=== PATIENT | female | born 1945 | race Caucasian/White ===

== ENCOUNTER → 2017-01-03 | Outpatient (CLI) | payer OTHER, MEDICARE | LOC: FIMAGING 09:53 | DX: Z12.31 Encounter for screening mammogram for malignant neoplasm of breast (principal) | CPT/HCPCS: G0202 ==

== ENCOUNTER → 2018-01-05 | Outpatient (CLI) | payer OTHER, MEDICARE | LOC: FIMAGING 13:05 | PROVIDERS: ATTEND Internal Medicine | DX: Z12.31 Encounter for screening mammogram for malignant neoplasm of breast (principal) ==

== ENCOUNTER → 2018-11-24 | Outpatient (CLI) | payer OTHER, MEDICARE | LOC: FIMAGING 15:25 | PROVIDERS: ATTEND Neurological Surgery | DX: M54.5 Low back pain (principal); M54.6 Pain in thoracic spine; M51.34 Other intervertebral disc degeneration, thoracic region; M40.204 Unspecified kyphosis, thoracic region; Z98.1 Arthrodesis status ==

== ENCOUNTER → 2018-12-17 | Day surgery (SDC) | payer OTHER, MEDICARE | END | disposition home or self-care (01) | LOC: FIMAGING 15:04 | PROVIDERS: ATTEND Neurological Surgery | DX: Z01.818 Encounter for other preprocedural examination (principal) | CPT/HCPCS: 36573; 76937; 77001; C1751 ==

== ENCOUNTER 2018-12-18 05:26 | Inpatient (IN) | payer OTHER, MEDICARE ==
[2018-12-18] MEDS ORDERED: ACETAMINOPHEN 500 MG TAB PO ONE (06:00)
[2018-12-18] MEDS ORDERED: GABAPENTIN 300 MG CAP PO ONE (06:00)
[2018-12-18] MEDS ORDERED: ceFAZolin 2 GM/DEXTROSE 100 ML IV ONE (06:00)
[2018-12-18] MEDS ORDERED: LR 1,000 ML IV ONE (06:01)
--- NOTE | 2018-12-18 06:12 | PDHPUP ---
History & Physical Update H&P update statement: This history and physical update is based on an assessment of the patient which was completed after admission or registration (within 24 hours), but prior to the surgery/procedure. H&P update: H&P reviewed & patient examined, no change in patient's condition since H&P completed
[2018-12-18] MEDS ORDERED: CHLORHEXIDINE GLUC HIBICLENS 118 ML BTL TP ONE (06:52)
[2018-12-18] MEDS ORDERED: BUPIVACAINE 0.25% 30 ML SDV ONE (06:52)
[2018-12-18] MEDS ORDERED: EPINEPHrine 1 MG/ML INJ ONE (06:53)
[2018-12-18] MEDS ORDERED: BACITRACIN 50,000 UNITS/10 ML SYR IRR ONE (06:53)
[2018-12-18] MEDS ORDERED: LIDOCAINE 1% 300 MG/30 ML SDV ONE (06:54)
[2018-12-18] MEDS ORDERED: MIDAZOLAM 2 MG/2 ML VIAL IVP ONE (06:55)
[2018-12-18] MEDS ORDERED: BUPIVACAINE 0.5% 30 ML SDV ONE (06:55)
--- NOTE | 2018-12-18 06:55 | PDANEPAE ---
ANE History of Present Illness back pain here for T12-L1 fusion ANE Past Medical History - Cardiovascular History Hx Hypertension: Yes Hx Arrhythmias: No Hx Chest Pain: No Hx Coronary Artery / Peripheral Vascular Disease: No Hx CHF / Valvular Disease: No Hx Palpitations: No Cardiovascular History Comment: TAMIKA MONITORS BP. - Pulmonary History Hx COPD: No Hx Asthma/Reactive Airway Disease: No Hx Recent Upper Respiratory Infection: No Hx Oxygen in Use at Home: Yes O2 in Use at Home (L/minute): 2 Hx Sleep Apnea: Yes Sleep Apnea Screening Result - Last Documented: Positive Pulmonary History Comment: LEISA POSITIVE USES DENTAL SPLINT AND O2 AT NOC - Neurologic History Hx Cerebrovascular Accident: No Hx Seizures: No Hx Dementia: No Neurologic History Comment: 3 SPINAL SURGERIES - Endocrine History Hx Diabetes: No Endocrine History Comment: HYPOTHYROIDISM. PRE- DIABETIC USES METFORMIN HAS LOST A LOT OF WEIGHT - Renal History Hx Renal Disorders: Yes Renal History Comment: HX OF BLADDER INFECTIONS - Liver History Hx Hepatic Disorders: No - Neurological & Psychiatric Hx Hx Neurological and Psychiatric Disorders: No - Cancer History Hx Cancer: Yes Cancer History Comment: BASAL CELL SKIN CA - Congenital Disorder History Hx Congenital Disorders: No - GI History Hx Gastrointestinal Disorders: Yes Gastrointestinal History Comment: REFLUX. CONSTIPATION - Other Health History Other Health History: NONE - Chronic Pain History Chronic Pain: Yes (BACK PAIN) - Surgical History Prior Surgeries: REMOVAL OF HARDWARE AND TLIF WITH DR SPAULDING 08/21/2012. APPY 1960. JULIANNA 1991. HYSTERECTOMY 1994. SPINAL FUSION 2003,2007,2012. . ANE Review of Systems Review of Systems: - Exercise capacity METS (RN): 4 METS ANE Patient History - Allergies Allergies/Adverse Reactions: codeine [Codeine] Allergy (Severe, Verified 08/18/12 16:28) PERISTALSIS SHUTS DOWN erythromycin base [Erythromycin Base] Allergy (Severe, Verified 08/18/12 16:28) PERISTALSIS SHUTS DOWN meperidine HCl [From Demerol] Allergy (Severe, Verified 08/18/12 16:28) Vomiting Sulfa (Sulfonamide Antibiotics) Allergy (Severe, Verified 08/18/12 16:28) HIVES ALL OVER BODY - Home Medications Home medications: home medication list seen and reviewed Home Medications: Aspirin [Aspirin 81mg (*)] 81 mg PO DAILY 08/03/14 [Last Taken 08/03/14] Chlorthalidone [Chlorthalidone 25 mg (*)] 25 mg PO DAILY 08/03/14 [Last Taken Unknown] Levothyroxine [Synthroid 75 mcg (*)] 75 mcg PO Q2D #0 08/03/14 [Last Taken Unknown] Liothyronine Sodium [Cytomel 5 mcg (*)] 5 mcg PO TID 08/03/14 [Last Taken Unknown] Nebivolol HCl [Bystolic 5 mg (*)] 2.5 mg PO HS 08/03/14 [Last Taken Unknown] Jefferson-3 Ethyl Est-Lovaza [Lovaza 1 gm (*)] 4 gm PO DAILY 08/03/14 [Last Taken Unknown] Omeprazole [Prilosec 20 mg] 20 mg PO BID 08/03/14 [Last Taken Unknown] Ramipril [Altace 5mg (*)] 5 mg PO DAILY 08/03/14 [Last Taken Unknown] metFORMIN HCL [Glucophage 500 mg (*)] 500 mg PO BIDMEAL 08/03/14 [Last Taken Unknown] Ezetimibe [Zetia 10 MG (*)] 10 mg PO DAILY 12/04/18 [Last Taken Unknown] Levothyroxine [Synthroid 125 mcg (*)] 125 mcg PO Q2D 12/04/18 [Last Taken Unknown] Methenamine Mandelate [METHENAMINE MANDELATE] 1 gm PO BID 12/04/18 [Last Taken Unknown] Milk of Magnesia PO HS 12/10/18 [Last Taken Unknown] - NPO status NPO Status: no food or drink >8 hours NPO Since - Liquids (Date): 12/17/18 NPO Since - Liquids (Time): 19:00 NPO Since - Solids (Date): 12/17/18 NPO Since - Solids (Time): 19:00 - Anes Hx Anes Hx: no prior problems - Smoking Hx Smoking Status: Never smoked - Alcohol Use Alcohol Use: Occasionally - Family Anes Hx Family Anes Hx: none Family Hx Anesthesia Complications: NONE ANE Labs/Vital Signs - Vital Signs Blood Pressure: 154/72 Heart Rate: 75 Respiratory Rate: 18 O2 Sat (%): 95 Height: 154.94 cm Weight: 95.254 kg ANE Physical Exam - Airway Neck exam: decreased ROM Mallampati Score: Class 3 Mouth exam: normal dental/mouth exam - Pulmonary Pulmonary: no respiratory distress, clear to auscultation - Cardiovascular Cardiovascular: regular rate and rhythym, no murmur, rub, or gallop - ASA Status ASA Status: III ANE Anesthesia Plan Anesthesia Plan: general endotracheal anesthesia Lines/Monitors: arterial line Total IV Anesthesia: Yes
[2018-12-18] MEDS ORDERED: PROPOFOL/EMULSION 500 MG/50 ML BOTTLE IV ONE ×3 (07:00→12:08)
[2018-12-18] MEDS ORDERED: PROPOFOL 200 MG/20 ML VIAL ONE (07:00)
[2018-12-18] MEDS ORDERED: REMIFENTANIL HCL 1 MG VIAL ONE ×3 (07:00→12:08)
[2018-12-18] MEDS ORDERED: fentaNYL 100 MCG/2 ML INJ ONE ×2 (07:00→13:54)
[2018-12-18] MEDS ORDERED: ROCURONIUM 100 MG/10 ML VIAL ONE (07:04)
[2018-12-18] MEDS ORDERED: MIDAZOLAM 2 MG/2 ML VIAL ONE (07:04)
[2018-12-18] MEDS ORDERED: ONDANSETRON DISINTEGRATING 4 MG TAB PO PRN (07:08)
[2018-12-18] MEDS ORDERED: HYDROmorphONE/DILAUDID 1 MG/ML INJ IVP PRN (07:08)
[2018-12-18] MEDS ORDERED: NALOXONE HCL 0.4 MG/ML INJ IVP PRN ×2 (07:08→12:22)
[2018-12-18] MEDS ORDERED: POLYETHYLENE GLYCOL 3350 17 GM PKT PO PRN (07:08)
[2018-12-18] MEDS ORDERED: diphenhydrAMINE 25 MG CAP PO PRN (07:08)
[2018-12-18] MEDS ORDERED: HYDROmorphONE/DILAUDID 6 MG/30 ML PCA IV PRN (07:08)
[2018-12-18] MEDS ORDERED: BISACODYL 10 MG SUPP PR PRN (07:08)
[2018-12-18] MEDS ORDERED: MAGNESIUM HYDROXIDE 30 ML UDCUP PO PRN (07:08)
[2018-12-18] MEDS ORDERED: HYDROCODONE/APAP 5/325 TAB PO PRN ×2 (07:08→12:22)
[2018-12-18] MEDS ORDERED: oxyCODONE IR 5 MG TAB PO PRN ×2 (07:08→12:22)
[2018-12-18] MEDS ORDERED: LACTULOSE 20 GM/30 ML UDCUP PO PRN (07:08)
[2018-12-18] MEDS ORDERED: ONDANSETRON 4 MG/2 ML VIAL IVP PRN ×2 (07:08→12:22)
[2018-12-18] MEDS ORDERED: THROMBIN (BOVINE) 20,000 UNIT VIAL TP ONE (07:47)
[2018-12-18] MEDS ORDERED: ONDANSETRON 4 MG/2 ML VIAL ONE (08:36)
[2018-12-18] MEDS ORDERED: DEXAMETHASONE 4 MG/ML VIAL ONE (08:36)
[2018-12-18] MEDS ORDERED: ceFAZolin 1 GM VIAL ONE (11:02)
[2018-12-18] MEDS ORDERED: PROMETHAZINE HCL 25 MG/ML INJ IVP PRN (12:22)
[2018-12-18] MEDS ORDERED: DIAZEPAM 5 MG/ML 1 ML SYR IVP PRN (12:22)
[2018-12-18] MEDS ORDERED: HYDROmorphONE/DILAUDID 2 MG/ML INJ IVP PRN (12:22)
[2018-12-18] MEDS ORDERED: ACETAMINOPHEN 500 MG TAB PO PRN (12:22)
[2018-12-18] MEDS ORDERED: fentaNYL 100 MCG/2 ML INJ IVP PRN (12:22)
[2018-12-18] MEDS ORDERED: HYDROmorphONE/DILAUDID 2 MG/ML INJ ONE ×2 (12:27→13:55)
--- NOTE | 2018-12-18 12:58 | POSTANESTH ---
Post Anesthetic Evaluation Cardiovascular Status: Normal, Stable, Similar to Pre-Op Cond Respiratory Status: Normal, Stable, Similar to Pre-op Cond. Level of Consciousness/Mental Status: Can Participate in Eval, Mildly Sleepy, Arousable Pain Control: Adequate, Prn Tx Ordered Nausea/Vomiting Control: Adequate, Prn Tx Ordered Complications Possibly Related to Anesthesia: None Noted
[2018-12-18] MEDS ORDERED: METHOCARBAMOL 750 MG TAB ONE (13:30)
[2018-12-18] MEDS: METHOCARBAMOL 750 MG TAB PO PRN ×2 (13:31→20:55)
--- NOTE | 2018-12-18 13:54 | POSTOPPROG ---
Post Op Note Date of Operation: 12/18/18 Surgeon: Zahida Kc Aircraft Restorer: SHYAM Rhoades Anesthesiologist: MD Inez Anesthesia: GET(General Endotracheal), Local (Specify) Pre-op Diagnosis: T-L stenosis Post-op Diagnosis: T-L stenosis Indication: LLE pain, LBP, MRI showing severe stenosis Procedure: T10-L2 with tie into prior hardware, T11/12 and T12/L1 TLIF Findings: see op report Inf/Abcess present in the surg proc area at time of surgery?: No Depth: Deep Incisional (Fascial) EBL: 100-500 Total fluids administered: see anesthesia record Complications: none Drains: Edenilson Bae
--- NOTE | 2018-12-18 14:01 | SOAPPROG ---
SOAP Progress Note Assessment/Plan: Post Op Visit: S: Awake and alert. NAD. Pt with expected T-L pain O: AFVSS/PERRLA/EOMI no droop CN 2-12 grossly intact +lt touch 5/5 BUE/BLE = CDI CITLALI in place A/P: 73 yo female that is s/p TLIF T11/T12 and L1/2 with PSF T10-L3 with tie into fusion to S1 -orders in place -call with any questions or concerns -pt understands and agrees -pt seen by Dr Kc as well -PT/OT pending Objective: Vital Signs Temp Pulse Resp BP Pulse Ox 36.3 C 75 11 L 124/63 H 96 12/18/18 13:48 12/18/18 06:54 12/18/18 13:48 12/18/18 13:48 12/18/18 13:48 ICD10 Worksheet Patient Problems: Problems Problem Status Onset Lumbar radicular pain Acute Lumbar stenosis Acute - ICD10 Problem Qualifiers (1) Lumbar radicular pain
[2018-12-18] MEDS ORDERED: ACETAMINOPHEN 500 MG TAB ONE (14:03)
[2018-12-18] MEDS: ACETAMINOPHEN 500 MG TAB PO SCH ×2 (14:49→20:49)
[2018-12-18] MEDS: NS 1,000 ML IV SCH (14:50)
[2018-12-18] MEDS: GABAPENTIN 300 MG CAP PO SCH ×2 (14:50→20:52)
--- NOTE | 2018-12-18 15:35 | PDMN ---
Medical Necessity Medical necessity: [facility] IP only surgery; cpt 80891 Lumbar Fusion (T10-L3 fusion , T11-L1 TLIF)
[2018-12-18] MEDS ORDERED: DEXMEDETOMIDINE HCL 400 MCG in NS 100 ML IV SCH (16:00)
--- NOTE | 2018-12-18 16:04 | GOP ---
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 PROCEDURE PERFORMED: Removal of posterior nonsegmental hardware at the L1 level and rods between L1 and L2, a posterolateral intervertebral arthrodesis, transforaminal lumbar interbody fusion at T12-L1 (37762); thoracic T11-T12 transpedicular diskectomy (54877); posterolateral arthrodesis at T10-11 ([phone]); placement of biomechanical intervertebral device, T11-12, T12-L1; same incision bone graft jerry vest; microscope; posterior segmental instrumentation, T10, T11, T12 with connectors between T12 and L2. FINDINGS: INDICATIONS: The patient is a middle-aged woman with a prior history of numerous spinal surgeries th at had all previously been successful with a fusion from L1 to S1, who developed increasingly severe back pain and radiating pain, worse on the left than on the right. An MRI demonstrated severe stenos is above the prior fusion at T12-L1, where there was terrible disk degenerative disease. She also gonzáles d a left-sided T11-12 disk protrusion, creating mass effect on the lateral aspect of the thecal sac a t that level. There was no significant compressive lesion at T10. I suggested extending her fusion across the thoracolumbar junction up to the T10 level with decompressions at T11-12 and T12-L1 with a n intervertebral arthrodesis at T12-L1 as well as T11-12. We would continue the posterolateral fusio n at the T10 level because of biomechanical concerns crossing the thoracolumbar junction, risk of pse udoarthrosis, adjacent segment disease, and possible need for additional spine surgery in the future above this fusion which would effective ago from T10 to the sacrum was discussed. She understood thi s was a possibility. She knew there was risk of paraplegia from surgery in the thoracic spine. She knew there was risk of spinal fluid leak, screw and hardware malposition and malfunction, and she wan sekou to proceed despite the known risks. DESCRIPTION OF PROCEDURE: The patient was taken to the operating room, placed in supine position. G eneral anesthesia was begun. An arterial line was placed. A PICC had been placed preoperatively. S he was flipped prone onto the Edenilson table. Care was taken to pad all points of contact. She had a history of surgical left shoulder and a frozen left shoulder as well as, I believe, humerus surgery with a fragile humerus. We attempted to keep her arm relatively anatomic and put it up in a normal f ashion, but I was not happy with this. I did not think that it would stay in this position, and so w e did reduce the arm and leave it at her side throughout the surgery. We monitored motors and somato sensory evoked potentials throughout surgery, and the median and ulnar nerves remained fully viable t hroughout the surgery. She was sterilely prepped and draped in usual fashion. A localizing x-ray wa s taken. We opened the prior incision, exposing the rostral portion of her construct at L1 and L2. We extended this all the way up to the T9 level and exposed the T10 transverse processes. We removed the T10, 11, 12 transverse processes, removed the scar off the prior screws at L1 and L2. We remove d the cap screws at L1. We then cut the rods just below the L1 tulip on each side. We removed the L 1 screws bilaterally. They were solidly anchored in bone. There was no evidence of pseudoarthrosis. We left these screws out. We denuded the facet joints bilaterally to clear arthrodesis at T10-11, T11-12, T12-L1. We then attached a reference frame and performed an O-arm spin and, using frameless still stereotactics, we placed pedicle screws bilaterally at T10, T11, and T12. An O-arm spin was gabe lee. All the screws were in excellent position. They all stimulated at 20 milliamps or greater. We did use 5.5 mm screws at T12. We used 6.5 mm screws elsewhere except on the right at T10, where we u sed a 5.5 mm screw. We took a jesu and placed it down over the right side of the construct, distracte d from T10 to T11, T11 to T12 and T12 to L1 unilaterally. We removed the left T12 screw that had bee n placed. We then harvested the T12 and T11 spinous processes and then used this for autologous bone graft. Under the microscope, we drilled bilateral laminectomies at T12-L1 with complete removal of the T12 lamina. We decompressed the right lateral aspect of the canal, but preserved the right T12-L 1 facet joint. We got a great decompression on the right-hand side. We came to the left, where we r emoved the left T12-L1 facet joint, identified the exiting T12 nerve root, and we did likewise at T11 -12, where we decompressed the central thecal sac and the left side of the canal at that level. We d id not perform a radical right-sided decompression at T11-12. We then drilled the very rostral pedic le of T11 out on the left-hand side to access the intervertebral space and disk, and indeed there was prolapsed disk material in the spinal canal at that level. From this somewhat lateral transfacet an d transpedicular approach, we were able to identify the disk herniation underneath the spinal cord, b ut it was not a soft disk. It was not easily removed. We did not retract the dura. We did thorough ly decompress the left side of the canal. We then incised the T11-12 disk and removed the disk and t he cartilaginous endplates. After doing so and coring out the area underneath the annulus of the dis k centrally, we tried to reduce the disk down into the disk space, and it remained hard and really im mobile. We had a great decompression. I did not belabor this effort. At the T12-L1 level, we did l ikewise from a left-sided approach. I drilled only the rostral portion of the pedicle to allow acces s to the T12-L1 disk. We identified the T12 exiting nerve root. It was preserved. We incised the T 12-L1 disk, removed the disk and the cartilaginous endplates. We then placed BMP and bone into the d isk at T12-L1 and T11-12 and then sized each and chose a 6 x 22 mm Capstone device. This was the sma llest device that I could utilize and I felt comfortable using it in the thoracic spine. It was pack ed with bone morphogenic protein, and it was inserted at both of those levels and positioned fluorosc opically. Both devices were in excellent position. I was happy with them. We decorticated all shin ining posterolateral bone bilaterally from T10 all the way down to L1. We then took a jesu, cut it to size for the patient's left-hand side. We had to trim the right-side jesu; it was still slightly memo g, and we did this. We placed the rods into the tulips, connected them with the connector to the old jesu, which was a 4.75 system. This was a 5.5 mm system. We connected it to the rods and distracted only slightly between the T11-12 and T12-L1. The final x-ray was taken. I was very happy with all of the hardware that was present. We then decorticated all the remaining posterolateral bone bilater ally and placed BMP and bone autograft posterolaterally bilaterally, followed by a subfascial drain. We then closed the incision in multiple layers using Vicryl suture. Steri-Strips were applied to th e skin. The patient tolerated the procedure well, and she was extubated and transferred to recovery room in stable condition. COMPLICATIONS: None. /[id number]/MODL
[2018-12-18] MEDS: EZETIMIBE 10 MG TAB PO SCH (16:38)
[2018-12-18] MEDS: LEVOTHYROXINE 125 MCG TAB PO SCH (16:38)
[2018-12-18] MEDS: FAMOTIDINE 20 MG TAB PO SCH ×2 (16:38→19:56)
[2018-12-18] MEDS: CHLORTHALIDONE 25 MG TAB PO SCH (16:38)
[2018-12-18] MEDS: LIOTHYRONINE SODIUM 5 MCG TAB PO SCH ×3 (16:39→20:58)
[2018-12-18] MEDS: OMEGA-3 ETHYL EST-LOVAZA 1 GM CAP PO SCH (16:39)
[2018-12-18] MEDS: LEVOTHYROXINE 75 MCG TAB PO SCH (16:39)
[2018-12-18] MEDS: SENNOSIDES/DOCUSATE SODIUM TAB PO SCH ×2 (16:39→20:01)
[2018-12-18] MEDS: PANTOPRAZOLE SODIUM 40 MG TAB PO SCH ×2 (16:39→19:56)
[2018-12-18] MEDS: RAMIPRIL 5 MG CAP PO SCH (16:39)
[2018-12-18] MEDS: ceFAZolin 2 GM/DEXTROSE 100 ML IV SCH (18:40)
--- NOTE | 2018-12-18 18:51 | SOAPPROG ---
ZOHAIB Progress Note Assessment/Plan: Assessment: Plan: 12/18/18 18:49 s/p extension of L-spine fusion to lower thoracic spine. Currently doing quite well. More alert at this point. Will tailor meds to pain as needed. Added tramadol to the list of options as needed per patient request. Will follow. Subjective: s/p back surgery with extension of fusion today. Quite zonked by Precedex, but more alert now. Pain not much of an issue yet. Historically she has needed narcotics for a few days, but prefers tramadol for pain control. Dtr Irene present. Patient without complaints yet, but still groggy. Objective: Vital Signs Temp Pulse Resp BP Pulse Ox 37.1 C 73 14 123/64 H 97 12/18/18 14:30 12/18/18 14:30 12/18/18 14:30 12/18/18 14:30 12/18/18 14:30 12/17/18 12/18/18 12/19/18 05:59 05:59 05:59 Intake Total 1783 Output Total 920 Balance 863 Gen: sedated, arouses to light touch and louder voice. Neuro: she grows steadily brighter with conversation Lungs: CTAB on PAP Heart: RRR distant Spine: no examined LE's: MARIE's and SCD's ICD10 Worksheet Patient Problems: Problems Problem Status Onset Lumbar radicular pain Acute Lumbar stenosis Acute
[2018-12-18] MEDS: METHENAMINE HIPP 1 GM TAB PO SCH (19:56)
[2018-12-18] MEDS: NEBIVOLOL HCL 5 MG TAB PO SCH (19:56)
[2018-12-18] MEDS: traMADol 50 MG TAB PO PRN (19:58)
[2018-12-18] MEDS: MAGNESIUM HYDROXIDE 30 ML UDCUP PO SCH ×2 (20:02→20:55)
[2018-12-18] MEDS: DOCUSATE SODIUM 100 MG CAP PO SCH (20:52)
[2018-12-19] MEDS: ceFAZolin 2 GM/DEXTROSE 100 ML IV SCH (00:29)
[2018-12-19] MEDS: NS 1,000 ML IV SCH (05:09)
[2018-12-19] MEDS: ACETAMINOPHEN 500 MG TAB PO SCH ×3 (05:21→22:37)
[2018-12-19] MEDS: traMADol 50 MG TAB PO PRN ×2 (05:21→20:32)
[2018-12-19] MEDS: GABAPENTIN 300 MG CAP PO SCH ×3 (05:21→22:37)
[2018-12-19 05:24] LABS: PLATELET COUNT 179 10^3/uL (150-400)
[2018-12-19] MEDS: METHOCARBAMOL 750 MG TAB PO PRN ×2 (05:58→15:49)
[2018-12-19] MEDS ORDERED: traMADol 50 MG TAB PO PRN (08:00)
--- NOTE | 2018-12-19 08:04 | NEUSURGPN ---
Assessment/Plan: A/P: 73 yo female that is s/p TLIF T11/T12 and L1/2 with PSF T10-L3 with tie into fusion to S1 POD1 -Optimize pain management, Tramadol increased -post op xrays pending -CITLALI x1 may d/c later today -PT/OT -DVT prophx: TEDs, SCDs, Lovenox okay -Discussed with Dr. Kc -Please notify NS with any change in neuro/motor exam Subjective: low back pain, denies any leg pain, numbness, tingling or weakness Objective: NAD A&Ox3 MAEx4 5/ and equal in BUE and BLE. CITLALI drain serosanginous Incision c/ d/i Catheter Insertion Date: 12/18/18 - Physician Discussed Patient with : De Neurosurgery Physical Exam - Vitals, I&O, Labs I and O 12/18/18 12/19/18 12/20/18 05:59 05:59 05:59 Intake Total 4207 Output Total 1630 Balance 2577 Weight 95.254 kg Intake: Oral (ml) 1600 IV Intake (ml) 1400 IV Infused (ml) 1207 Dexmedetomidine HCl 400 17 mcg In Ns 100 ml @ Per Protocol IV CONT ZONIA Rx#: [id number] Ns 1,000 ml @ 75 mls/hr 990 IV CONT ZONIA Rx#: [id number] ceFAZolin 2 GM/DEXTROSE 200 100 ml @ 200 mls/hr IV Q8H ZONIA Rx#:[id number] Output: Urine (ml) 1000 Catheter 1000 Estimated Blood Loss (ml) 400 CITLALI Drain Output (ml) 230 Back Edenilson Bae 230 Other: Intake Quantity Yes Sufficient Vital Signs Temp Pulse Resp BP Pulse Ox 37.1 C 63 10 L 124/58 H 91 L 12/19/18 07:55 12/19/18 07:55 12/19/18 07:55 12/19/18 07:55 12/19/18 07:55 Laboratory Results 12/19/18 05:10 12/19/18 05:10 ICD10 Worksheet Patient Problems: Problems Problem Status Onset Lumbar radicular pain Acute Lumbar stenosis Acute
[2018-12-19] MEDS: FAMOTIDINE 20 MG TAB PO SCH ×2 (08:30→20:29)
[2018-12-19] MEDS: OMEGA-3 ETHYL EST-LOVAZA 1 GM CAP PO SCH (08:30)
[2018-12-19] MEDS: LIOTHYRONINE SODIUM 5 MCG TAB PO SCH ×3 (08:31→16:57)
[2018-12-19] MEDS: RAMIPRIL 5 MG CAP PO SCH (08:31)
[2018-12-19] MEDS: PANTOPRAZOLE SODIUM 40 MG TAB PO SCH ×2 (08:31→20:29)
[2018-12-19] MEDS: CHLORTHALIDONE 25 MG TAB PO SCH (08:31)
[2018-12-19] MEDS: METHENAMINE HIPP 1 GM TAB PO SCH ×2 (08:31→20:28)
[2018-12-19] MEDS: metFORMIN HCL 500 MG TAB PO SCH ×2 (08:31→16:53)
[2018-12-19] MEDS: EZETIMIBE 10 MG TAB PO SCH (08:31)
[2018-12-19] MEDS ORDERED: MAGNESIUM HYDROXIDE 30 ML UDCUP PO PRN (10:16)
--- NOTE | 2018-12-19 10:21 | SOAPPROG ---
ZOHAIB Progress Note Assessment/Plan: Assessment: Plan: 12/18/18 18:49 s/p extension of L-spine fusion to lower thoracic spine. Currently doing quite well. More alert at this point. Will tailor meds to pain as needed. Added tramadol to the list of options as needed per patient request. Will follow. 12/19/18 10:19 constipation--historic challenge. Will place order for 4 MOM tablets q6 hours prn. She has her own unopened supply and taking this is her preference. L-T spine surgery--looking great. Encourage use of IS pain management--she prefers tramadol and seems to be doing quite well with it low Na+--eating now, will recheck tomorrow Subjective: The pain is really doing well. She has walked, she has had xrays, she has had food and beverage and is feeling well. Objective: Vital Signs Temp Pulse Resp BP Pulse Ox 37.1 C 63 10 L 124/58 H 91 L 12/19/18 07:55 12/19/18 07:55 12/19/18 07:55 12/19/18 07:55 12/19/18 07:55 Laboratory Results 12/19/18 05:10 12/19/18 05:10 12/18/18 12/19/18 12/20/18 05:59 05:59 05:59 Intake Total 4207 Output Total 1630 Balance 2577 Gen: NAD, clear, pleasant Lungs: CTAB Heart: RRR Abd : + bs ,soft LE's easy movement Na+ 129 ICD10 Worksheet Patient Problems: Problems Problem Status Onset Lumbar radicular pain Acute Lumbar stenosis Acute
--- NOTE | 2018-12-19 15:19 | ASMTCMCOM ---
CM Note CM Note Notes: Pt had planned surgery, resides alone. OT rec home, PT rec home/HHC. Pt was pre-arranged with [facility] by MD office. Pt to have someone stay with her during her recovery for two weeks. CM to follow. D/c plan of care: Home with HHC Date Signed: 12/19/2018 03:19 PM Electronically Signed By:LOURDES Hester
[2018-12-19] MEDS: DOCUSATE SODIUM 100 MG CAP PO SCH (20:28)
[2018-12-19] MEDS ORDERED: LIOTHYRONINE SODIUM 5 MCG TAB PO ONE (21:00)
[2018-12-19] MEDS: NEBIVOLOL HCL 5 MG TAB PO SCH (22:37)
[2018-12-19] MEDS: [UNRECOGNIZED DRUG - OTHER] PO PRN (22:40)
[2018-12-19] MEDS: MAGNESIUM OXIDE 500 MG PO PRN (22:40)
[2018-12-20] MEDS: traMADol 50 MG TAB PO PRN ×6 (00:17→19:54)
[2018-12-20] MEDS ORDERED: POTASSIUM CL 20 MEQ TAB PO ONE (06:48)
[2018-12-20] MEDS: ACETAMINOPHEN 500 MG TAB PO SCH ×3 (06:54→22:42)
[2018-12-20] MEDS: GABAPENTIN 300 MG CAP PO SCH ×3 (06:54→22:42)
[2018-12-20] MEDS ORDERED: NS W/ 20 KCl/L 1,000 ML IV SCH (07:00)
[2018-12-20] MEDS: LIOTHYRONINE SODIUM 5 MCG TAB PO SCH ×3 (07:33→16:38)
--- NOTE | 2018-12-20 08:12 | NEUSURGPN ---
Assessment/Plan: A/P: 73 yo female that is s/p TLIF T11/T12 and L1/2 with PSF T10-L3 with tie into fusion to S1 POD1 -Optimize pain management, Tramadol increased -post op xrays pending -CITLALI x1 may d/c later today -PT/OT -DVT prophx: TEDs, SCDs, Lovenox okay -Hyponatremia- Patient is drinking a lot of free water, recommended switching to electrolyte rich fluids -Discussed with Dr. Kc -Please notify NS with any change in neuro/motor exam Subjective: low back pain better with medication changes Objective: NAD A&Ox3 MAEx4 5/ and equal in BUE and BLE. CITLALI drain serosanguineous Incision c/d/i Catheter Insertion Date: 12/18/18 - Physician Discussed Patient with : De Neurosurgery Physical Exam - Vitals, I&O, Labs I and O 12/19/18 12/20/18 12/21/18 05:59 05:59 05:59 Intake Total 4207 Output Total 1630 75 Balance 2577 -75 Weight 95.254 kg Intake: Oral (ml) 1600 IV Intake (ml) 1400 IV Infused (ml) 1207 Dexmedetomidine HCl 400 17 mcg In Ns 100 ml @ Per Protocol IV CONT ZONIA Rx#: [id number] Ns 1,000 ml @ 75 mls/hr 990 IV CONT ZONIA Rx#: [id number] ceFAZolin 2 GM/DEXTROSE 200 100 ml @ 200 mls/hr IV Q8H ZONIA Rx#:[id number] Output: Urine (ml) 1000 Catheter 1000 Estimated Blood Loss (ml) 400 CITLALI Drain Output (ml) 230 75 Back Edenilson Bae 230 75 Other: Intake Quantity Yes Yes Sufficient Vital Signs Temp Pulse Resp BP Pulse Ox 37.0 C 63 18 107/70 88 L 12/20/18 07:51 12/20/18 07:51 12/20/18 07:51 12/20/18 07:51 12/20/18 07:51 Laboratory Results 12/19/18 05:10 12/20/18 04:30 ICD10 Worksheet Patient Problems: Problems Problem Status Onset Lumbar radicular pain Acute Lumbar stenosis Acute
[2018-12-20] MEDS: metFORMIN HCL 500 MG TAB PO SCH ×2 (08:31→17:37)
[2018-12-20] MEDS: FAMOTIDINE 20 MG TAB PO SCH ×2 (08:31→19:54)
[2018-12-20] MEDS: PANTOPRAZOLE SODIUM 40 MG TAB PO SCH ×2 (08:32→19:53)
[2018-12-20] MEDS: EZETIMIBE 10 MG TAB PO SCH (08:32)
[2018-12-20] MEDS: METHENAMINE HIPP 1 GM TAB PO SCH ×2 (08:32→19:53)
[2018-12-20] MEDS: CHLORTHALIDONE 25 MG TAB PO SCH (08:37)
[2018-12-20] MEDS: LEVOTHYROXINE 75 MCG TAB PO SCH (08:41)
[2018-12-20] MEDS: LEVOTHYROXINE 125 MCG TAB PO SCH (10:20)
--- NOTE | 2018-12-20 10:53 | SOAPPROG ---
ZOHAIB Progress Note Assessment/Plan: Assessment: Plan: 12/18/18 18:49 s/p extension of L-spine fusion to lower thoracic spine. Currently doing quite well. More alert at this point. Will tailor meds to pain as needed. Added tramadol to the list of options as needed per patient request. Will follow. 12/19/18 10:19 constipation--historic challenge. Will place order for 4 MOM tablets q6 hours prn. She has her own unopened supply and taking this is her preference. L-T spine surgery--looking great. Encourage use of IS pain management--she prefers tramadol and seems to be doing quite well with it low Na+--eating now, will recheck tomorrow 12/20/18 10:51 hyponatremia--d/w patient related to chlorthalidone, tramadol and surgical stress. Will d/c chlorthalidone today. Will give gentle fluids x 1 liter. Patient avoiding free water. Recheck in am low K+--replaced with po dose this am--recheck in am constipation--bowel plan in place spinal surgery--recovering quite well otherwise Subjective: Marielos is feeling pretty good. Pain control improved with q3 hour tramadol. She did have some transient tingling in her fingers. She is learning about low sodium. No BM since , but feels rumblings in her stomach. Appetite is good. Thirst is good. Walking is going quite well. Objective: Vital Signs Temp Pulse Resp BP Pulse Ox 37.0 C 63 18 110/60 88 L 12/20/18 07:51 12/20/18 07:51 12/20/18 07:51 12/20/18 08:37 12/20/18 07:51 Laboratory Results 12/19/18 05:10 12/20/18 04:30 12/19/18 12/20/18 12/21/18 05:59 05:59 05:59 Intake Total 4207 Output Total 1630 75 Balance 2577 -75 Gen: NAD Lungs: CTAB Heart: RRR Abd + bs soft LE's without edema Na+ 126 k+ 2.9 ICD10 Worksheet Patient Problems: Problems Problem Status Onset Lumbar radicular pain Acute Lumbar stenosis Acute
[2018-12-20] MEDS: METHOCARBAMOL 750 MG TAB PO PRN ×2 (11:17→19:54)
[2018-12-20] MEDS: OMEGA-3 ETHYL EST-LOVAZA 1 GM CAP PO SCH (11:20)
[2018-12-20] MEDS: RAMIPRIL 5 MG CAP PO SCH (11:23)
[2018-12-20] MEDS: NEBIVOLOL HCL 5 MG TAB PO SCH (19:55)
[2018-12-20] MEDS: MAGNESIUM OXIDE 500 MG PO PRN (19:58)
[2018-12-20] MEDS: [UNRECOGNIZED DRUG - OTHER] PO PRN (19:58)
[2018-12-20] MEDS: MAGNESIUM HYDROXIDE 30 ML UDCUP PO SCH (23:09)
[2018-12-20] MEDS: DOCUSATE SODIUM 100 MG CAP PO SCH (23:09)
[2018-12-21] MEDS: traMADol 50 MG TAB PO PRN ×6 (00:54→20:44)
[2018-12-21] MEDS: ACETAMINOPHEN 500 MG TAB PO SCH ×3 (06:47→23:53)
[2018-12-21] MEDS: LIOTHYRONINE SODIUM 5 MCG TAB PO SCH ×3 (06:47→17:21)
[2018-12-21] MEDS: GABAPENTIN 300 MG CAP PO SCH ×3 (06:47→22:00)
--- NOTE | 2018-12-21 07:57 | NEUSURGPN ---
Date of Surgery: 12/18/18 Post Op Day: 3 Assessment/Plan: Assessment: 73 yo female that is s/p TLIF T11/T12 and L1/2 with PSF T10-L3 with tie into fusion to S1 POD #3 Plan: -Optimize pain management, Tramadol increased -post op xrays look good -CITLALI removed -CDI -PT/OT-CPM -DVT prophx: TEDs, SCDs, Lovenox okay -Hyponatremia- Patient was drinking a lot of free water. Fluid restricted now. Na 129 today. K 3.5 -defer to Dr Gotti for management of Na/K -Discussed/seen with Dr. Kc -Please notify NS with any change in neuro/motor exam Subjective: Awake and alert. NAD. Eating/drinking and voiding. No f/c/n/v/d Objective: Awake and alert. NAD. Eating/drinking and voiding PERRLA/EOMI CN 2-12 grossly intact 5/5 BUE/BLE = CDI Neuro Check Frequency: per routine Urinary Catheter in Place: No Catheter Insertion Date: 12/18/18 - Physician Discussed Patient with : De Patient Seen by : De Neurosurgery Physical Exam - Vitals, I&O, Labs I and O 12/20/18 12/21/18 12/22/18 05:59 05:59 05:59 Output Total 75 75 Balance -75 -75 Output: CITLALI Drain Output (ml) 75 75 Back Edenilson Bae 75 75 Other: Intake Quantity Yes Yes Sufficient Vital Signs Temp Pulse Resp BP Pulse Ox 36.8 C 64 14 163/87 H 97 12/21/18 07:49 12/21/18 07:49 12/21/18 07:49 12/21/18 07:49 12/21/18 07:49 Laboratory Results 12/19/18 05:10 12/21/18 05:00 ICD10 Worksheet Patient Problems: Problems Problem Status Onset Lumbar radicular pain Acute Lumbar stenosis Acute - ICD10 Problem Qualifiers (1) Lumbar radicular pain
[2018-12-21] MEDS: RAMIPRIL 5 MG CAP PO SCH (08:22)
[2018-12-21] MEDS: EZETIMIBE 10 MG TAB PO SCH (08:23)
[2018-12-21] MEDS: PANTOPRAZOLE SODIUM 40 MG TAB PO SCH ×2 (08:23→20:47)
[2018-12-21] MEDS: LEVOTHYROXINE 125 MCG TAB PO SCH (08:23)
[2018-12-21] MEDS: FAMOTIDINE 20 MG TAB PO SCH ×2 (08:23→20:47)
[2018-12-21] MEDS: METHENAMINE HIPP 1 GM TAB PO SCH ×2 (08:24→20:44)
[2018-12-21] MEDS: metFORMIN HCL 500 MG TAB PO SCH ×2 (08:24→17:21)
[2018-12-21] MEDS: OMEGA-3 ETHYL EST-LOVAZA 1 GM CAP PO SCH (08:25)
--- NOTE | 2018-12-21 09:21 | SOAPPROG ---
ZOHAIB Progress Note Assessment/Plan: Assessment: Plan: 12/18/18 18:49 s/p extension of L-spine fusion to lower thoracic spine. Currently doing quite well. More alert at this point. Will tailor meds to pain as needed. Added tramadol to the list of options as needed per patient request. Will follow. 12/19/18 10:19 constipation--historic challenge. Will place order for 4 MOM tablets q6 hours prn. She has her own unopened supply and taking this is her preference. L-T spine surgery--looking great. Encourage use of IS pain management--she prefers tramadol and seems to be doing quite well with it low Na+--eating now, will recheck tomorrow 12/20/18 10:51 hyponatremia--d/w patient related to chlorthalidone, tramadol and surgical stress. Will d/c chlorthalidone today. Will give gentle fluids x 1 liter. Patient avoiding free water. Recheck in am low K+--replaced with po dose this am--recheck in am constipation--bowel plan in place spinal surgery--recovering quite well otherwise 12/21/18 09:19 hyponatremia--improved. Will stay off chlorthalidone for now htn repeat value ok. Plenty of room to increase bystolic or ramipril if needed low K+ improving post op course--quite successful! Subjective: Marielos is doing well. Bright, walking well. Feels a bit over salted. + BM Objective: Vital Signs Temp Pulse Resp BP Pulse Ox 36.8 C 64 14 163/87 H 97 12/21/18 07:49 12/21/18 07:49 12/21/18 07:49 12/21/18 08:22 12/21/18 07:49 Laboratory Results 12/19/18 05:10 12/21/18 05:00 12/20/18 12/21/18 12/22/18 05:59 05:59 05:59 Output Total 75 75 Balance -75 -75 GEN: NAD Lungs: CTAB Heart: RRR repeat in room BP 127/63 ABD: + bs soft LE's in SCD's Na+ 129 K+ 3.5 ICD10 Worksheet Patient Problems: Problems Problem Status Onset Lumbar radicular pain Acute Lumbar stenosis Acute
[2018-12-21] MEDS: METHOCARBAMOL 750 MG TAB PO PRN (10:33)
[2018-12-21] MEDS: ENOXAPARIN 40 MG/0.4 ML SYR SC SCH (10:49)
--- NOTE | 2018-12-21 12:08 | ASMTCMCOM ---
CM Note CM Note Notes: Lizzy with [facility] on site today to check-in on patient. [facility] CM will follow for any further needs. Plan: [facility] PT Date Signed: 12/21/2018 12:07 PM Electronically Signed By:Alona Wang RN
[2018-12-21] MEDS: MAGNESIUM OXIDE 500 MG PO PRN (20:46)
[2018-12-21] MEDS: [UNRECOGNIZED DRUG - OTHER] PO PRN (20:46)
[2018-12-21] MEDS: NEBIVOLOL HCL 5 MG TAB PO SCH (20:47)
[2018-12-21] MEDS: MAGNESIUM HYDROXIDE 30 ML UDCUP PO SCH (22:11)
[2018-12-21] MEDS: DOCUSATE SODIUM 100 MG CAP PO SCH (22:11)
[2018-12-22] MEDS: traMADol 50 MG TAB PO PRN ×3 (00:32→08:58)
[2018-12-22] MEDS: LIOTHYRONINE SODIUM 5 MCG TAB PO SCH (05:16)
[2018-12-22] MEDS: GABAPENTIN 300 MG CAP PO SCH (05:16)
[2018-12-22] MEDS: ACETAMINOPHEN 500 MG TAB PO SCH (05:16)
[2018-12-22] MEDS: OMEGA-3 ETHYL EST-LOVAZA 1 GM CAP PO SCH (08:50)
[2018-12-22] MEDS: FAMOTIDINE 20 MG TAB PO SCH (08:52)
[2018-12-22] MEDS: EZETIMIBE 10 MG TAB PO SCH (08:52)
[2018-12-22] MEDS: METHENAMINE HIPP 1 GM TAB PO SCH (08:52)
[2018-12-22] MEDS: LEVOTHYROXINE 125 MCG TAB PO SCH (08:53)
[2018-12-22] MEDS: metFORMIN HCL 500 MG TAB PO SCH (08:54)
[2018-12-22] MEDS: RAMIPRIL 5 MG CAP PO SCH (08:54)
[2018-12-22] MEDS: ENOXAPARIN 40 MG/0.4 ML SYR SC SCH (08:54)
[2018-12-22] MEDS: PANTOPRAZOLE SODIUM 40 MG TAB PO SCH (08:58)
[2018-12-22 08:59] VITALS: BP 124/100
--- NOTE | 2018-12-22 09:29 | NEUSURGPN ---
Assessment/Plan: Assessment: 73 yo female that is s/p TLIF T11/T12 and L1/2 with PSF T10-L3 with tie into fusion to S1 POD #4 Plan: -Optimize pain management -post op xrays look good -PT/OT-CPM -DVT prophx: TEDs, SCDs, Lovenox okay -Hyponatremia-stable at 129 this am. Discussed continuing with electrolyte rich fluids. Follow up with Dr. Gotti's office in 1 week to follow up with sodium -defer to Dr Gotti for management of Na/K -Discussed with Dr. Kc -Please notify NS with any change in neuro/motor exam Subjective: pain tolerable with medication Objective: Awake and alert. NAD. 02/28 BUE/BLE = CDI Catheter Insertion Date: 12/18/18 - Physician Discussed Patient with : [facility] Physical Exam - Vitals, I&O, Labs I and O 12/21/18 12/22/18 12/23/18 05:59 05:59 05:59 Intake Total 950 Output Total 75 Balance -75 950 Intake: Oral (ml) 950 Output: CITLALI Drain Output (ml) 75 Back Edenilson Bae 75 Other: Intake Quantity Yes Sufficient Number of Voids Toilet 2 Vital Signs Temp Pulse Resp BP Pulse Ox 36.7 C 74 17 124/100 H 95 12/22/18 00:00 12/22/18 00:00 12/22/18 00:00 12/22/18 08:54 12/22/18 00:00 Laboratory Results 12/19/18 05:10 12/22/18 08:30 ICD10 Worksheet Patient Problems: Problems Problem Status Onset Lumbar radicular pain Acute Lumbar stenosis Acute
[2018-12-22] MEDS: LEVOTHYROXINE 75 MCG TAB PO SCH (09:42)
--- NOTE | 2018-12-22 10:54 | ASMTCMCOM ---
CM Note CM Note Notes: Pt medically stable for d/c with [facility] TORRES, Lizzy at [facility] notified. No orders needed as [facility] has protocol with MD. D/c meds sent in [employer]. Date Signed: 12/22/2018 10:54 AM Electronically Signed By:LOURDES Hester
--- NOTE | 2018-12-22 10:55 | ASDISCHSUM ---
Discharge Information Plan Status:Home with Home Health Medically Cleared to Leave: Discharge Date:12/22/2018 10:32 AM CM D/C Disposition: ADT D/C Disposition:Home, Routine, Self-Care Projected Discharge Date:12/22/2018 11:00 AM Transportation at D/C: Discharge Delay Reason: Follow-Up Date:12/22/2018 11:00 AM Discharge Slot: Final Diagnosis: Placement Information Referral Type:*Home Health Care Services Referral ID:[id number] Provider Name:[facility] ([facility]) Address 1:[address] [address] Address 2: City:[place] Selection Factors: State:[place] Patient Contact Information Contact Name:JACKELINE Relationship:Daughter Address: Work Phone: City: [facility] Phone: State/[facility] Code: Email: Financial Information Financial Class:Medicare Primary Plan Desc:MEDICARE INPATIENT Primary Plan Number:[id number] Secondary Plan Desc:[employer]/MDR SUPPLEMENT Secondary Plan Number:[id number] Assessment Information LACE LACE Length of stay for Answers: 4-6 days current admission Acuity / Level of Answers: Yes Care: Did the patient have an inpatient admission? # of Emergency department Answers: 0 visits in the last 6 months Score: 7 Date Signed: 12/22/2018 10:52 AM Electronically Signed By:LOURDES Hester [facility] Progress Note CM Note CM Note Notes: Pt had planned surgery, resides alone. OT rec home, PT rec home/[facility]. Pt was pre-arranged with [facility] by MD office. Pt to have someone stay with her during her recovery for two weeks. CM to follow. D/c plan of care: Home with [facility] Date Signed: 12/19/2018 03:19 PM Electronically Signed By:LOURDES Hester [facility] CM Progress Note CM Note CM Note Notes: Lizzy with [facility] on site today to check-in on patient. Continue to anticipate home with [facility], PT. CM will follow for any further needs. Plan: [facility] PT Date Signed: 12/21/2018 12:07 PM Electronically Signed By:Alona Wang RN [facility] CM Progress Note CM Note CM Note Notes: Pt medically stable for d/c with [facility], Lizzy at [facility] notified. No orders needed as [facility] has protocol with . [facility] Date Signed: 12/22/2018 10:54 AM Electronically Signed By:LOURDES Hester Intervention Information Intervention Type:*IM-Signed Date of Service:12/22/2018 10:35 AM Patient Type:Inpatient Staff Member:Lilian Delaney Hours: Discipline: Severity: Comment:
== END 2018-12-22 10:32 | disposition home health service (06) | DRG 454 ==
LOC: F3N 05:26 → F2N 13:11 → F3N 12-19 15:19
PROVIDERS: ADMIT Neurological Surgery; ATTEND Neurological Surgery
DX: M48.05 Spinal stenosis, thoracolumbar region (principal); E87.1 Hypo-osmolality and hyponatremia; M51.34 Other intervertebral disc degeneration, thoracic region; M51.15 Intervertebral disc disorders with radiculopathy, thoracolumbar region; Z98.1 Arthrodesis status; K59.00 Constipation, unspecified; M51.24 Other intervertebral disc displacement, thoracic region; I10 Essential (primary) hypertension; G47.33 Obstructive sleep apnea (adult) (pediatric); E03.9 Hypothyroidism, unspecified; R73.03 Prediabetes; K21.9 Gastro-esophageal reflux disease without esophagitis; Z79.84 Long term (current) use of oral hypoglycemic drugs; Z85.820 Personal history of malignant melanoma of skin
CPT/HCPCS: 97116-GP; 97161-GP; 97165-GO; 97535-GO; C1713; C1751; J0171; J0690; J1100; J1170; J1650; J2250; J2405; J2704; J3010

== ENCOUNTER → 2019-01-21 | Day surgery (SDC) | payer OTHER, MEDICARE | END | disposition home or self-care (01) | LOC: FIMAGING 11:53 | PROVIDERS: ATTEND Physician Assistant | PROC: 0J973ZX Drainage of Back Subcutaneous Tissue and Fascia, Percutaneous Approach, Diagnostic (ICD-10-PCS; principal; 2019-01-21) | DX: T81.89XA Other complications of procedures, not elsewhere classified, initial encounter (principal); Z98.890 Other specified postprocedural states ==

== ENCOUNTER → 2019-02-15 | Outpatient (CLI) | payer OTHER, MEDICARE | LOC: FIMAGING 13:50 | PROVIDERS: ATTEND Neurological Surgery | DX: M48.04 Spinal stenosis, thoracic region (principal); M51.34 Other intervertebral disc degeneration, thoracic region; Z98.1 Arthrodesis status ==